=== PATIENT | female | born 1945 | race Hispanic/Latino ===

== ENCOUNTER → 2017-04-03 | Outpatient (CLI) | payer OTHER ==
[~2017-04-03] MED LIST: ASPI-555 PO; LISI10TA7 PO; OMEG300C3 PO; SITA100T12 PO
== END | disposition home or self-care (01) ==
LOC: RAH 11:06
PROVIDERS: ATTEND Family Medicine
DX: Z12.31 Encounter for screening mammogram for malignant neoplasm of breast (principal)
CPT/HCPCS: 77067

== ENCOUNTER → 2017-04-16 | Outpatient (CLI) | payer OTHER | END | disposition home or self-care (01) | LOC: RAH 07:19 | PROVIDERS: ATTEND Family Medicine | DX: N63.12 Unspecified lump in the right breast, upper inner quadrant (principal); N63.20 Unspecified lump in the left breast, unspecified quadrant | CPT/HCPCS: 76641; 77066 ==

== ENCOUNTER → 2017-05-01 | Outpatient (CLI) | payer OTHER | END | disposition home or self-care (01) | LOC: RAH 08:47 | PROVIDERS: ATTEND Family Medicine | DX: C50.912 Malignant neoplasm of unspecified site of left female breast (principal); D05.81 Other specified type of carcinoma in situ of right breast; R92.0 Mammographic microcalcification found on diagnostic imaging of breast | CPT/HCPCS: 19083; 19084; 76942; 88305; 88342; 88361; A4215 ×3 ==